=== PATIENT | male | born 1965 | race African-American/Black ===

== ENCOUNTER 2022-08-14 04:03 | Day surgery (SDC) | payer OTHER ==
[2022-08-10 10:27] VITALS: BMI 25.2
[2022-08-14] MEDS ORDERED: LIDOCAINE HCL 1%, 10 MG/ML (10ML VIAL) MDV ONE (07:18)
[2022-08-14] MEDS ORDERED: LIDOCAINE HCL 1%, 10 MG/ML (20ML VIAL) NR ONE (07:27)
[2022-08-14] MEDS ORDERED: ceFAZolin SODIUM 1 GM VIAL ONE (08:16)
[2022-08-14] MEDS ORDERED: MIDAZOLAM HCL 2 MG/2 ML SINGLE DOSE VIAL ONE (08:17)
[2022-08-14] MEDS ORDERED: PROPOFOL 20 ML ONE (08:17)
[2022-08-14] MEDS ORDERED: BUPIVACAINE HCL/PF 0.25% (2.5MG/ML) 10 ML VIAL ONE (08:28)
[2022-08-14] MEDS ORDERED: ceFAZolin SODIUM 1 GM VIAL IVPB ONE (08:29)
[2022-08-14] MEDS ORDERED: BUPIVACAINE HCL/PF 0.25% (2.5MG/ML) 10 ML VIAL IJ ONE ×3 (08:30→08:36)
[2022-08-14 09:34] VITALS: RESP 16
[2022-08-14 11:23] VITALS: BP 138/88; PULSE 66; TEMP 97.8
== END 2022-08-14 11:15 | disposition home or self-care (01) ==
LOC: JASU-SURG 04:03
PROVIDERS: ATTEND Surgery
PROC: 0JB60ZX Excision of Chest Subcutaneous Tissue and Fascia, Open Approach, Diagnostic (ICD-10-PCS; principal; 2022-08-14 08:00)
DX: D17.1 Benign lipomatous neoplasm of skin and subcutaneous tissue of trunk (principal)
CPT/HCPCS: 88305-TC